=== PATIENT | female | born 1955 | race Caucasian/White ===

== ENCOUNTER 2025-05-09 08:18 | Outpatient (CLI) | payer BC, MEDICARE | END 2025-05-09 08:19 | disposition home or self-care (01) | LOC: SCSBT 08:18 | PROVIDERS: ATTEND Internal Medicine Endocrinology, Diabetes & Metabolism | DX: M81.8 Other osteoporosis without current pathological fracture (principal); M85.851 Other specified disorders of bone density and structure, right thigh; M85.852 Other specified disorders of bone density and structure, left thigh | CPT/HCPCS: 77080 ==